=== PATIENT | male | born 1970 | race African-American/Black ===

== ENCOUNTER 2018-09-04 21:57 | Emergency (ER) | payer SELFPAY ==
[~2018-09-04] VITALS: Ht 182.9 cm; Wt 87.0 kg
[~2018-09-04 21:57] MED LIST: AMLO5TAB88; HYDR25TA; WARF5TAB76
[2018-09-04] MEDS ORDERED: ONDANSETRON HCL 4MG/2ML INJ IV STA (23:37)
[2018-09-04] MEDS ORDERED: SODIUM CHLORIDE 0.9% 1,000 ML IV ONE (23:37)
[2018-09-04] MEDS ORDERED: CEFAZOLIN 1000MG PREMIX 50 ML IV ONE (23:45)
[2018-09-04] MEDS ORDERED: MORPHINE SULFATE 4 MG/ML CPJ (NOT FOR IM USE) IV ONE (23:45)
[2018-09-04] MEDS ORDERED: TETANUS, DIPHTHERIA, PERTUSSIS VAC/PF 0.5ML (>7YR OLD) IM ONE (23:45)
[2018-09-04] MEDS ORDERED: LIDOCAINE HCL/EPINEPHRINE 1%-EPI 1:100,000 20 ML VIAL INFIL ONE (23:45)
[2018-09-04] MEDS ORDERED: BACITRACIN ZINC OINT UDPKT TOP ONE (23:45)
[2018-09-05 00:17] LABS: BASOPHILS % 0.5 % (0.0-2.0); EOSINOPHILS % 1.2 % (0.0-5.0); HEMATOCRIT. 44.1 % (42.0-52.0); HEMOGLOBIN. 15.3 g/dL (14.0-18.0); LYMPHOCYTES % 15.9 % (20.0-50.0); MEAN CORPUSCULAR VOLUME 100.8 fL (80.0-94.0); MEAN PLATELET VOLUME 8.3 fl (7.4-10.4); MONOCYTES % 8.6 % (2.0-8.0); NEUTROPHILS % 73.8 % (40.0-76.0); PLATELET 115 x1000/uL (130-400); RED BLOOD CELL COUNT 4.37 mill/uL (4.7-6.1)
[2018-09-05 00:20] LABS: CHLORIDE 110 mEq/L (98-107)
[2018-09-05 13:33] VITALS: BP 129/71
== END 2018-09-05 14:00 | disposition home or self-care (01) ==
LOC: ER 21:57
DX: S01.01XA Laceration without foreign body of scalp, initial encounter (principal); S01.81XA Laceration without foreign body of other part of head, initial encounter; F17.210 Nicotine dependence, cigarettes, uncomplicated; F12.10 Cannabis abuse, uncomplicated; Z71.6 Tobacco abuse counseling; Z85.9 Personal history of malignant neoplasm, unspecified; Z59.0 Homelessness; Y00.XXXA Assault by blunt object, initial encounter; Y93.89 Activity, other specified; Y92.488 Other paved roadways as the place of occurrence of the external cause
CPT/HCPCS: 36415; 70450; 70486; 71045; 80048; 85025; 90471; 90715; 96374; 96375; 99284; 99406; J0690; J2270; J2405; J7030; Z7610; J3490

== ENCOUNTER 2021-11-12 14:50 | Emergency (ER) | payer SELFPAY ==
[~2021-11-12] VITALS: Ht 180.3 cm; Wt 73.0 kg
[2021-11-12] MEDS ORDERED: LOPERAMIDE HCL 2MG CAPSULE PO ONE (15:15)
[2021-11-12] MEDS ORDERED: IMOD MT (15:45)
[2021-11-12] MEDS ORDERED: LOPERAMIDE HCL 2MG CAPSULE PO NR (16:00)
[2021-11-12 16:46] VITALS: BP 112/77
== END 2021-11-12 16:46 | disposition home or self-care (01) ==
LOC: ER 14:50
DX: R19.7 Diarrhea, unspecified (principal)
CPT/HCPCS: 99283

== ENCOUNTER 2023-12-05 18:26 | Emergency (ER) | payer OTHER ==
[~2023-12-05] VITALS: Ht 180.3 cm; Wt 91.0 kg
[2023-12-05 18:36] VITALS: TEMP 97.5; O2SAT 95
[2023-12-05 19:06] VITALS: BP 128/78; PULSE 95; RESP 14; O2SAT 98
[2023-12-05 19:48] LABS: BASOPHILS % 0.8 % (0.0-2.0); EOSINOPHILS % 1.5 % (0.0-5.0); HEMATOCRIT. 35.2 % (42.0-52.0); LYMPHOCYTES % 27.3 % (20.0-50.0); MEAN CORPUSCULAR HEMOGLOBIN 30.6 pg (28.0-32.0); MEAN CORPUSCULAR VOLUME 89.8 fL (80.0-94.0); MEAN PLATELET VOLUME 7.2 fl (7.4-10.4); MONOCYTES % 7.2 % (2.0-8.0); NEUTROPHILS % 63.2 % (40.0-76.0); PLATELET 253 x1000/uL (130-400); RED BLOOD CELL COUNT 3.92 mill/uL (4.7-6.1); RED CELL DISTRIBUTION WIDTH 15.8 % (11.6-14.6); WHITE BLOOD COUNT 6.6 x1000/uL (4.5-11.0)
[2023-12-05] MEDS: SODIUM CHLORIDE 0.9% 1,000 ML IV ONE (19:55)
[2023-12-05 19:57] LABS: CHLORIDE 108 mEq/L (98-107); POTASSIUM 3.6 mEq/L (3.5-5.1); SODIUM 141 mEq/L (136-145)
[2023-12-05 19:58] LABS: CARBON DIOXIDE 25 mEq/L (21-32)
[2023-12-05 20:03] LABS: CREATININE 0.8 mg/dL (0.6-1.3); GLUCOSE 144 mg/dL (70-105); UREA NITROGEN BLOOD 6 mg/dL (9-23)
[2023-12-05 20:04] LABS: ETHANOL BLOOD 213 mg/dL (<10)
[2023-12-05 20:09] LABS: CLARITY URINE CLEAR (CLEAR); COLOR URINE YELLOW (YELLOW); GLUCOSE URINE NEGATIVE (NEGATIVE); KETONES URINE NEGATIVE (NEGATIVE); LEUKOCYTE ESTERASE URINE NEGATIVE (NEGATIVE); NITRITE URINE NEGATIVE (NEGATIVE); OCCULT BLOOD URINE NEGATIVE (NEGATIVE); PROTEIN URINE NEGATIVE (NEGATIVE); SPECIFIC GRAVITY URINE 1.017 (1.005-1.030)
[2023-12-05 20:27] LABS: *AMPHETAMINES SCREEN URINE NEGATIVE (NEGATIVE); *BARBITURATES SCREEN URINE NEGATIVE (NEGATIVE); *BENZODIAZEPINES SCREEN URINE NEGATIVE (NEGATIVE); *COCAINE SCREEN URINE NEGATIVE (NEGATIVE)
[2023-12-05 20:28] LABS: CANNABINOID URINE SCREEN PRESUMPTIVE POSITIVE (NEGATIVE); ECSTASY MDMA SCREEN URINE NEGATIVE (NEGATIVE); METHADONE URINE SCREEN NEGATIVE (NEGATIVE); OPIATES URINE SCREEN NEGATIVE (NEGATIVE); PHENCYCLIDINE URINE SCREEN PRESUMTIVE POSITIVE (NEGATIVE)
[2023-12-05 20:46] LABS: BACTERIA URINE TRACE; RBC URINE NONE SEEN /hpf (0-2); SQUAMOUS EPITHELIAL CELL URINE RARE /lpf (RARE/1+); WBC URINE 0-2 /hpf (0-2)
[2023-12-05] MEDS: LORAZEPAM 1MG TABLET PO ONE (21:30)
== END 2023-12-06 00:15 | disposition home or self-care (01) ==
LOC: ER 18:26
DX: F10.229 Alcohol dependence with intoxication, unspecified (principal); F31.9 Bipolar disorder, unspecified; F12.10 Cannabis abuse, uncomplicated; Z85.9 Personal history of malignant neoplasm, unspecified; Y90.7 Blood alcohol level of 200-239 mg/100 ml
CPT/HCPCS: 80305; 80048; 81003; 80320; 85025; 36415; 96360; 96361; 99283; J7030; G0480